=== PATIENT | female | born 1990 ===

== ENCOUNTER 2020-08-13 13:45 | Inpatient (IN) | payer OTHER ==
[~2020-08-13] VITALS: Ht 162.6 cm; Wt 87.5 kg
[2020-09-05] VITALS (16 sets, daily range): BP systolic 92–150; BP diastolic 55–92; PULSE 67–93; TEMP 97.7–98.5
[2020-09-05 10:39] LABS: HEMOGLOBIN 10.7 g/dl (12.5-16.0); MEAN CELL VOLUME 93 fl (80.0-100.0); MEAN CORPUSCULAR HEMOGLOBIN 31 pg (27.0-31.0); MEAN CORPUSCULAR HGB CONC 33 g/dl (33.0-37.0); MEAN PLATELET VOLUME 10.7 fl (7.4-10.4); PLATELET COUNT 234 K/mm3 (130-400); RED BLOOD COUNT 3.45 M/mm3 (4.10-5.30); REDCELL DISTRIBUTION WIDTH-CV 12.9 % (11.5-14.5)
--- NOTE | 2020-09-05 10:43 | NUR ---
PT HERE FOR REPEAT . PLAN OF CARE REVIEWED. FHT'S FOUND IN THE 130'S WITH MODERATE VARIABILITY AND ACCELS. IV STARTED IN RIGHT HAND WITH LR INFUSING WITHOUT DIFFICULTY. ASSESSMENT COMPLETED.
--- NOTE | 2020-09-05 11:38 | NUR ---
PT AMBULATES TO OPERATING ROOM WITH IN ATTENDANCE. SITS ON EDGE OF BED FOR SPINAL PLACEMENT BY BEKA SILVA. AFTER SPINAL PT POSITIONED LYING DOWN WITH WEDGE UNDER RIGHT HIP. FHT'S 158. CORTES CATHETER PLACED WITH CLEAR YELLOW URINE RETURNED. SECURED WITH ARMBOARDS AND SAFETY STRAP. DURAPREP TO ABDOMEN. DELIVERY OF MALE INFANT BY DR MCMILLAN AND DR FLORES. PT AWAKE AND ALERT.
[2020-09-05 11:48] LABS: BAND 1 % (0-10); EOSINOPHIL 1 % (0-4); LYMPHOCYTE 31 % (20.0-51.0); NEUTROPHILS 64 % (42.0-75.2); PLATELET ESTIMATE NORMAL (NORMAL)
[2020-09-05 11:49] LABS: OVALOCYTES 1+
[2020-09-05] MEDS ORDERED: MOTRIN 800800 MG/TAB PO (11:57)
[2020-09-05] MEDS ORDERED: PERCOCET 325 MG1 TA2 PO (11:58)
--- NOTE | 2020-09-05 12:00 | NUR ---
PT AWAKE AND ALERT. TO PACU AFTER DISCHARGE FROM OPERATING ROOM. DENIES PAIN. FUNDUS FIRM WITH MINIMAL BLEEDING OBSERVED.
[2020-09-06 00:55] VITALS: BP 118/56; PULSE 70; TEMP 97.7
[2020-09-06 04:10] VITALS: BP 107/78; PULSE 80; TEMP 98.1
--- NOTE | 2020-09-06 07:03 | NUR ---
PT SLEEPING, DECLINED BEDSIDE REPORT. REPORT RECEIVED FROM OFF GOING RN, BEKAH Lee CARE TAKEN OVER BY THIS RN.
[2020-09-06 08:00] VITALS: BP 110/64; PULSE 88; TEMP 98
[2020-09-06 16:00] VITALS: BP 122/72; PULSE 68; TEMP 98.1
[2020-09-06 20:05] VITALS: BP 106/67; PULSE 93; TEMP 97.8
[2020-09-07 07:50] VITALS: BP 108/63; PULSE 83; TEMP 98.7
== END 2020-09-07 14:00 | disposition home or self-care (01) | DRG 788 ==
LOC: OB 09-05 09:39
PROVIDERS: ADMIT Obstetrics & Gynecology
PROC: 10D00Z1 Extraction of Products of Conception, Low, Open Approach (ICD-10-PCS; principal; 2020-09-05)
DX: O34.211 Maternal care for low transverse scar from previous cesarean delivery (principal); Z3A.39 39 weeks gestation of pregnancy; Z37.0 Single live birth
CPT/HCPCS: J0690; J1885; J2370; J2405; J2590; J7120

== ENCOUNTER → 2020-09-02 | Outpatient (CLI) | payer OTHER ==
[~2020-09-02] MED LIST: MOTRIN 800800 MG/TAB PO; PERCOCET 325 MG1 TA2 PO
== END ==
LOC: ZCOL.LAB 08:00
DX: Z20.828 Contact with and (suspected) exposure to other viral communicable diseases (principal)